=== PATIENT | male | born 1940 | race Caucasian/White ===

== ENCOUNTER 2018-05-06 10:18 | Observation (INO) | payer OTHER ==
--- NOTE | 2018-05-06 10:32 | CPEKG ---
Heart Rate: 52 RR Interval: 1154 P-R Interval: 268 QRSD Interval: 92 QT Interval: 496 QTC Interval: 462 P [place]: 68 QRS [place]: 56 T Wave [place]: 55 EKG Severity - ABNORMAL ECG - EKG Impression: SINUS RHYTHM EKG Impression: FIRST DEGREE AV BLOCK EKG Impression: CONSIDER LEFT VENTRICULAR HYPERTROPHY Electronically Signed By: Ivana Medina 06-May-2018 15:11:29
[2018-05-06] MEDS ORDERED: NS 500 ML IV ONE (10:40)
[2018-05-06] MEDS ORDERED: ATROPINE SULFATE 1 MG/10 ML SYR IVP ONE (10:42)
[2018-05-06] MEDS ORDERED: ATROPINE SULFATE 1 MG/10 ML SYR ONE (10:50)
--- NOTE | 2018-05-06 10:51 | EDPHY ---
H & P Time Seen by Provider: 05/06/18 10:31 HPI/ROS: HPI Lightheaded. 78-year-old male by private vehicle. This patient reports that he has had a history of spontaneous and intermittent episodes of lightheadedness ongoing for years. He reports however over the last several months these episodes have become more frequent in nature and over the last 1-2 days much more frequent. He reports about 30 episodes of near fainting yesterday and multiple episodes this morning. This is what prompted him to come to the emergency department. No associated chest pain. He denies vertigo. No shortness of breath. He is not on beta blockers or calcium channel blockers. No known coronary artery disease history. ROS: Constitutional: No fever, no chills. As above. Eyes: No discharge. No changes in vision. ENT: No sore throat. No nasal congestion or rhinorrhea. Respiratory: No cough. No shortness of breath. Cardiac: No chest pain, as above. Gastrointestinal: No abdominal pain, no vomiting, no diarrhea. Genitourinary: No hematuria. No dysuria or increased frequency with urination. Musculoskeletal: No back pain. No neck pain. No myalgias or arthralgias. Skin: No rashes. Neurological: No headache. No focal weakness or altered sensation. Past medical history: Benign prostatic hypertrophy. Social history: Nonsmoker. Here by himself. No alcohol. Physical Exam: General Appearance: Alert, no distress. Very pleasant. This patient is responding to questions appropriately and in full sentences. This patient appears well-hydrated and well-nourished. Eyes: Pupils equal and round no pallor or injection. No lid edema, erythema or injection. Respiratory: There are no retractions, lungs are clear to auscultation with good air movement bilaterally. Cardiovascular: Regular rate and rhythm. Bradycardia. No murmur appreciated. Gastrointestinal: Abdomen is soft and nontender, no masses, bowel sounds normal. No focal tenderness at McBurney's point. No Yap sign. Neurological: Motor sensory function is grossly intact. Cranial nerves are normal. Gait is normal. Skin: Warm and dry, no rashes. Musculoskeletal: Neck is supple and nontender. Extremities are symmetrical. All joints range without pain or impingement. Psychiatric: No agitation. No depression. Database: EKG: EKG time is 10:29 a.m.; EKG shows a narrow complex normal sinus bradycardia with a ventricular rate of 52. 1st degree AV block noted. The QRS, QT intervals are within normal limits. There are no ST-T wave changes indicative of ischemic or injury pattern. No evidence of right heart strain. Interpreted by me. Rhythm strip time 10:35 a.m. Shows what appears to be a Mobitz type 2 av block versus sick sinus syndrome with a sinus pause lasting approximately 10 sec. Then followed by a junctional rhythm followed by resuming of sinus beats. Later portions of the rhythm strip indicate intermittent sinus rhythm as well as AV dissociation. Interpreted by me. Imaging: Chest x-ray AP portable; the cardiac mediastinal silhouette is unremarkable. No evidence of infiltrate or pneumothorax. No acute cardiopulmonary disease process noted. Interpreted by me. Procedures: Emergency department course: Patient had a near syncopal episode associated with rhythm strip as noted above. Vital signs from triage were reviewed. The patient is moderately hypertensive. Bradycardia with a rate of 50 noted. Vital signs otherwise normal. Patient transferred from room 8 to room 2. Pacer pads were placed. He was started on IV normal saline with 500 cc to be given over the next hour. EKG obtained and reviewed by myself. He will be given 0.5 mg of IV atropine. Epinephrine drip to be ordered to the bedside. Cardiology paged at 10:40 a.m.. 10:55 a.m., patient given 0.5 mg of IV atropine. Repeat vital signs blood pressure 173/89. Heart rate is currently 83 with a narrow complex sinus rhythm on the monitor. Response to atropine indicates that block or problem is likely up above the AV node. More likely sick sinus syndrome. 11:00 a.m., spoke with on-call lathe set up operator Dr. Edita Pitts. She will see this patient in the emergency department shortly. Plan will be to admit the patient to the ICU under her care with the interventionalist to place a pacemaker this afternoon. This was discussed with the patient. He endorses. Currently shelter monitor shows a narrow complex sinus rhythm with ventricular rate of 64. Blood pressure 172/109. 11:15 a.m., Dr. Edita Pitts of the cardiology service is currently at the bedside. Patient's blood pressure is 150/91. case monitor shows a narrow complex sinus rhythm with ventricular rate of 77. The patient's remaining emergency department course under my care has been uneventful. The patient was admitted to the ICU under the care of Dr. Pitts in stable condition. Differential Diagnosis: The differential diagnosis on this patient includes but is not limited to 1st degree AV block, type 2 second-degree AV block, AV dissociation. This represents a partial list of diagnoses considered. These considerations are based on history, physical exam, past history, reassessment and diagnostic testing. Smoking Status: Never smoked Constitutional: Initial Vital Signs Temperature (C) 36.8 C 05/06/18 10:29 Heart Rate 50 L 05/06/18 10:29 Respiratory Rate 14 05/06/18 10:29 Blood Pressure 171/89 H 05/06/18 10:29 O2 Sat (%) 96 05/06/18 10:29 O2 Delivery Mode Room Air Allergies/Adverse Reactions: No Known Allergies Allergy (Verified 05/06/18 11:20) Home Medications: Medication Instructions Recorded Aspirin [Aspirin 325 mg (*)] 325 mg PO DAILY 05/06/18 Tanyz Eras 0.4mg 0.4 mg PO DAILY 05/06/18 Medical Decision Making - Diagnostics Imaging Results: Imaging Impressions Chest X-Ray 05/06/18 10:41 Impression: Possible mild cardiomegaly. Consider obtaining a routine upright PA and lateral chest, the patient is clinically able. Critical Care Time: I spent a total of 42 minutes of critical care time in obtaining history, performing a physical exam, bedside monitoring of interventions, collecting and interpreting tests and discussion with consultants but not including time spent performing procedures. - Data Points Laboratory Results: Laboratory Results 05/06/18 10:40 05/06/18 10:40 05/06/18 05/06/18 05/06/18 10:48 10:40 10:40 WBC RBC Hgb Hct MCV MCH MCHC RDW Plt Count MPV Neut % (Auto) Lymph % (Auto) [place] % (Auto) Eos % (Auto) Baso % (Auto) Nucleat RBC Rel Count Absolute Neuts (auto) Absolute Lymphs (auto) Absolute Monos (auto) Absolute Eos (auto) Absolute Basos (auto) Absolute Nucleated RBC Immature Gran % Immature Gran # PT 12.6 SEC SEC (12.0-15.0) INR 0.92 (0.83-1.16) APTT 26.2 SEC SEC (23.0-38.0) Sodium 140 mEq/L mEq/L (135-145) Potassium 4.5 mEq/L mEq/L (3.3-5.0) Chloride 109 mEq/L mEq/L (97-110) Carbon Dioxide 24 mEq/l mEq/l (22-31) Anion Gap 7 mEq/L L mEq/L (8-16) BUN 18 mg/dL mg/dL (7-23) Creatinine 1.1 mg/dL mg/dL (0.7-1.3) Estimated GFR > 60 Glucose 94 mg/dL mg/dL (70-100) Calcium 9.8 mg/dL mg/dL (8.5-10.4) POC Troponin I 0.01 ng/mL ng/mL (0.00-0.08) TSH Pending 05/06/18 10:40 WBC 4.80 10^3/uL 10^3/uL (3.80-9.50) RBC 4.48 10^6/uL 10^6/uL (4.40-6.38) Hgb 14.0 g/dL g/dL (13.7-17.5) Hct 41.5 % % (40.0-51.0) MCV 92.6 fL fL (81.5-99.8) MCH 31.3 pg pg (27.9-34.1) MCHC 33.7 g/dL g/dL (32.4-36.7) RDW 13.3 % % (11.5-15.2) Plt Count 145 10^3/uL L 10^3/uL (150-400) MPV 11.9 fL H fL (8.7-11.7) Neut % (Auto) 47.1 % % (39.3-74.2) Lymph % (Auto) 35.6 % % (15.0-45.0) [place] % (Auto) 14.0 % H % (4.5-13.0) Eos % (Auto) 3.1 % % (0.6-7.6) Baso % (Auto) 0.2 % L % (0.3-1.7) Nucleat RBC Rel Count 0.0 % % (0.0-0.2) Absolute Neuts (auto) 2.26 10^3/uL 10^3/uL (1.70-6.50) Absolute Lymphs (auto) 1.71 10^3/uL 10^3/uL (1.00-3.00) Absolute Monos (auto) 0.67 10^3/uL 10^3/uL (0.30-0.80) Absolute Eos (auto) 0.15 10^3/uL 10^3/uL (0.03-0.40) Absolute Basos (auto) 0.01 10^3/uL L 10^3/uL (0.02-0.10) Absolute Nucleated RBC 0.00 10^3/uL 10^3/uL (0-0.01) Immature Gran % 0.0 % % (0.0-1.1) Immature Gran # 0.00 10^3/uL 10^3/uL (0.00-0.10) PT INR APTT Sodium Potassium Chloride Carbon Dioxide Anion Gap BUN Creatinine Estimated GFR Glucose Calcium POC Troponin I TSH Medications Given: Discontinued Medications Atropine Sulfate (Atropine 1 Mg/10 Ml Syringe) 0.5 mg IVP EDNOW ONE Stop: 05/06/18 10:43 Last Admin: 05/06/18 10:47 Dose: 0.5 mg Sodium Chloride (Ns) 500 mls @ 1,000 mls/hr IV EDNOW ONE PRN Reason: Protocol Stop: 05/06/18 11:09 Last Admin: 05/06/18 10:46 Dose: 500 mls Point of Care Test Results: Chemistry 05/06/18 10:48 POC Troponin I 0.01 ng/mL ng/mL (0.00-0.08) Departure - Departure Disposition: [facility] Inpatient Acute Clinical Impression: Near syncope, Arrhythmia, Probable sick sinus syndrome
[2018-05-06 10:53] LABS: PLATELET COUNT 145 10^3/uL (150-400)
[2018-05-06 11:00] LABS: INR 0.92 (0.83-1.16); PROTIME(PATIENT) 12.6 SEC (12.0-15.0)
[2018-05-06] MEDS ORDERED: EPINEPHrine 1 MG in NS 250 ML IV SCH (11:00)
[2018-05-06] MEDS ORDERED: BACITRACIN IRRIGATION/NS 50,000 UNITS/1,000 ML BTL IRR ONE (11:51)
[2018-05-06] MEDS ORDERED: NS 1,000 ML IV ONE (11:51)
[2018-05-06] MEDS ORDERED: ONDANSETRON DISINTEGRATING 4 MG TAB PO PRN (11:52)
[2018-05-06] MEDS ORDERED: ACETAMINOPHEN 325 MG TAB PO PRN (11:52)
[2018-05-06] MEDS ORDERED: ONDANSETRON 4 MG/2 ML VIAL IVP PRN (11:52)
[2018-05-06] MEDS ORDERED: ceFAZolin 2 GM in NS 100 ML IV ONE (12:11)
[2018-05-06] MEDS ORDERED: ceFAZolin 2 GM/DEXTROSE 100 ML IV ONE (12:30)
--- NOTE | 2018-05-06 12:49 | GHP ---
[f rep st] HISTORY AND PHYSICAL DATE OF ADMISSION: 05/06/2018 CHIEF COMPLAINT: Presyncope. HISTORY OF PRESENT ILLNESS: We were asked by Dr. Medina, to visit with this patient. The patie nt is a very pleasant 78-year-old male with a history of untreated dyslipidemia and BPH. He has no h istory of coronary disease or arrhythmia to his knowledge. Over the past several months, he has had periodic dizziness and lightheadedness with 2 falls but no a ctual loss of consciousness. Things have been getting worse and more frequent. Yesterday, he descri bes 30 episodes of presyncope. He went to the [employer] station and had a 12-lead EKG, which I reviewed. This showed sinus rhythm with a first-degree AV block. He was told to see Cardiology. He presented to [facility] as a walk-in today and was told to report to the emergency department. In the emergency department, he was found to have sinus bradycardia with periods of sinus arrest and pauses up to 6 seconds with junctional escape rhythm. He was given 0.5 mg of atropine with return o f normal sinus rhythm and elevation in his blood pressure. He reports that yesterday when he was having all of the episodes of presyncope, he did have some ches t pressure. He has noted exertional dyspnea at higher levels of activity such as riding his bike eren zeyad or cross-country skiing. As mentioned, no nunu loss of consciousness. He does report bilateral mild lower extremity edema without PND or orthopnea. He is very active. 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 REVIEW OF SYSTEMS: A full 10-point review of systems is performed, is otherwise negative except that which is outlined in the History of Present Illness. ALLERGIES: No known drug allergies. PAST MEDICAL HISTORY: 1. Dyslipidemia. He reports that he has been intolerant of statins, but did start a statin at the s enriqueta time as he started another BPH medication, so unclear as to the side effects. 2. BPH. 3. 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 4. Tendon surgery. 5. Bilateral forearm fractures. OUTPATIENT MEDICATIONS: Tamsulosin 0.4 mg daily and aspirin 325 mg. He reports no other supplements or zfws-yof-wcpafis medications. SOCIAL HISTORY: The patient lives alone. He does not smoke cigarettes. He drinks alcohol in modera tion. FAMILY HISTORY: Brother had a DVT. There is no clear history of arrhythmia or premature coronary di sease. PHYSICAL EXAM: VITAL SIGNS: Blood pressure is 173/89, heart rate currently 73, oxygen saturation 97 % on room air. His respiratory rate is 16. GENERAL: Well-appearing older male in no distress HEENT : Sclerae are clear and free of jaundice. Mucous membranes are moist. Normocephalic, atraumatic. CARDIOVASCULAR: JVP is less than 10. Carotids equal to 2+ without bruit. Regular rate and rhythm w ith a 2/6 early to mid systolic murmur at the apex. No S3 or S4. LUNGS: Clear bilaterally without wheezes, rhonchi, or rales. ABDOMEN: Soft, nontender, nondistended, without bruits, masses, or hepa tosplenomegaly. EXTREMITIES: Warm and well-perfused without cyanosis, clubbing, or edema. NEURO: Alert and oriented x3 without gross focal neurologic deficits. LABORATORY DATA: CBC is essentially normal except for platelets of 145. INR is 0.92. Sodium 140, p otassium 4.5, chloride 109, bicarb 24, BUN 18, creatinine 1.1. Troponin is 0.01. TSH is pending. I reviewed his 12-lead EKG, which shows sinus bradycardia with 1st -degree AV block. I reviewed linda joseph rhythm strips from the ER, which show sinus rhythm with periods of sinus arrest and junctional es cape rhythm. Pauses up to 6 seconds. His chest x-ray reviewed by me shows no acute cardiopulmonary process. ASSESSMENT AND PLAN: A 78-year-old male with sick sinus syndrome and sinus arrest. This warrants pa cemaker implantation as he is not on any medications that can clearly cause this problem. Risks, javan efits, and alternatives were discussed and he is willing to proceed. 1. Sick sinus syndrome: Pacemaker later today with Dr. Lilly. He has transcutaneous pads on. He lucinda l be observed in the ICU. He does respond to atropine as needed. We will check TSH as well. 2. Murmur: Likely mitral regurgitation. Obtain echocardiogram. 3. Dyspnea on exertion: At some point he may require further risk stratification with stress testin g. It is also possible that perhaps he has chronotropic incompetence contributing to exertional dysp cedrick. Troponin is negative. It certainly does not seem that his bradyarrhythmia represents a sequela e of cardiac ischemia. 4. Dyslipidemia: Check lipids. Thank you for allowing us to participate in this patient's care. Anticipate at least 1 midnight give n the need for pacemaker implantation. /[id number]/MODL
--- NOTE | 2018-05-06 12:51 | PDGENHP ---
History & Physical Chief Complaint: presyncope Relevant Physical Exam: s1s2 rrr cta ao3 Cardiorespiratory Assessment: sinus pauses, for pacemaker implant. scott bhat
--- NOTE | 2018-05-06 12:52 | PDPROPOC ---
Sedation Plan of Care Sedation Plan of Care: vital signs stable, mental status noted, patient educated of risks, benefits, alternatives, patient can tolerate sedation ASA Classification: ASA 2 Planned drugs: fentanyl, midazolam Mallampati Score: Class 1 Mallampati Reference Image: Patient passed 3-3-2 rule?: Yes
[2018-05-06] MEDS ORDERED: IOPAMIDOL (ISOVUE-300) 50 ML VIAL ONE (14:50)
[2018-05-06] MEDS ORDERED: LIDOCAINE 1% 300 MG/30 ML SDV ONE (14:50)
[2018-05-06] MEDS ORDERED: LIDO/EPI 1% **for epidural** 30 ML SDV ONE (14:51)
[2018-05-06] MEDS ORDERED: fentaNYL 100 MCG/2 ML INJ ONE (14:51)
[2018-05-06] MEDS ORDERED: MIDAZOLAM 2 MG/2 ML VIAL ONE (14:51)
[2018-05-06] MEDS ORDERED: BUPIVACAINE 0.5% 30 ML SDV ONE (14:51)
--- NOTE | 2018-05-06 15:32 | ECHO ---
[email or web address] [address] [address] Main: [phone] Fax: Transthoracic Echocardiogram Name: ASHLEY PRINCE MR#: [id number] Study Date: 05/06/2018 Study Time: 01:43 PM Date of : 1940 Age: 78 year(s) Height: 165.1 cm (65 in.) Weight: 72.58 kg (160 lb.) BSA: 1.8 m2 Gender: Male Examination: Echo Indication: Sick Sinus Syndrome Image Quality: Contrast: Requested by: Edita Pitts BP: 170 mmHg/146 mmHg Heart Rate: Rhythm: Sinus bradycardia Indication: Sick Sinus Syndrome Procedure Staff Financial Agent: Camden Johnston RDCS Reading Physician: Rohan Amos MD Requesting Provider: Conclusions: Normal global systolic LV function. EF is 59 %. Trivial mitral valve regurgitation. Cannot rule out bicuspid aortic valve. The Ao mean PG is 12 mmHg with a AV max PG of 20 mmHg, There is turbulent flow noted thru the aortic valve.. Measurements: Chambers Valvular Assessment AV/MV Valvular Assessment TV/PV Normal Normal Normal Name Value Range Name Value Range Name Value Range Ao Deana (MM): 3.6 cm (2.2 cm-3.7 AV Vmax: 2.26 m/s (1 m/s-1.7 TR Vmax: 2.33 mm/s ( - ) cm) m/s) TR PGmax: 22 mmHg ( - ) IVSd (2D): 0.8 cm (0.6 cm-1.1 AV maxP mmHg ( - ) syst. PAP: 27 mmHg ( - ) cm) AV meanP mmHg ( - ) PV Vmax: 0.96 m/s (0.6 m/s-0.9 LVDd (2D): 5.0 cm (4.2 cm-5.9 LVOT Vmax: 0.71 m/s (0.7 m/s-1.1 m/s) cm) m/s) PV PGmax: 4 mmHg ( - ) LVDs (2D): 3.3 cm (2.1 cm-4 JENNA (Vmax): 1.0 cm2 ( - ) cm) JENNA (VTI): 1.0 cm ( - ) LVPWd (2D): 1.0 cm (0.6 cm-1 MV E Vmax: 0.54 m/s ( - ) cm) MV A Vmax: 0.74 m/s ( - ) LVOTd 2.0 cm 2.0 cm mm MV E/A: 0.73 ( - ) LVEF (MM): 59 (>=55 %) Continued Measurements: Chambers Valvular Assessment AV/MV Valvular Assessment TV/PV Name Value Name Value Name Value LADs Lon.5 cm MV E' Septal: 0.04 m/s CVP (est.): 5 mmHg LA Area: 20.3 cm2 MV E/E' Septal: 14.30 Patient: ASHLEY PRINCE Study Date: 05/06/2018 Page 1 of 2 01:43 PM LA Volume: 79 ml MV E/E' Lateral: 11.40 LA Volume Index: 43.9 ml/m2 AR Vmax: 2.12 cm/s Findings: Left Ventricle: Normal size left ventricle. No LV hypertrophy. Normal global systolic LV function. EF is 59 %. No regional wall motion abnormality. Diastolic dysfunction is present. . Right Ventricle: Normal size right ventricle. Normal RV function. Left Atrium: The left atrium is mildly to moderately dilated. Right Atrium: The right atrium is normal in size. Mitral Valve: The mitral valve is normal in appearance. Trivial mitral valve regurgitation. Aortic Valve: Cannot rule out bicuspid aortic valve. The Ao mean PG is 12 mmHg with a AV max PG of 20 mmHg, There is turbulent flow noted thru the aortic valve.. Tricuspid Valve: The tricuspid valve is normal in appearance and function. Trivial tricuspid valve regurgitation. The pulmonary artery pressure is normal. Pulmonic Valve: The pulmonic valve is normal in appearance and function. Mild pulmonic valve regurgitation is noted. Aorta: The aorta is normal. Pericardium: No pericardial effusion. (No Signature Object) Patient: ASHLEY PRINCE Study Date: 05/06/2018 Page 2 of 2 01:43 PM [id number]
--- NOTE | 2018-05-06 16:52 | EPPROC ---
Electrophysiology Procedure Note: PROCEDURE PERFORMED: 1. Implantation of an A/V Pacemaker 2. Subclavian vein angiography 3. Fluoroscopy INDICATION: Presyncope Sinus pauses and junctional rhythm correlate with episodes of presyncope PROCEDURE NOTE: Patient presented to the cardiac catheterization laboratory in a fasting, post absorptive state . EP RN administered sedation. The left infraclavicular area was prepped and draped in the usual sterile fashion. Lidocaine plus bupivacaine was used for local anesthesia. Left subclavian venography was performed by injection of iodinated contrast into the left antecubital vein. This was done to assure patency of the vein and also to assess for any anatomical aberrations. Using a combination of blunt and sharp dissection and electrocautery, the dissection was carried down to the prepectoral fascia. A pocket was made in this anatomical plane. All bleeding was controlled with electrocautery. The pocket was packed with gauze soaked in antibiotic solution. Fluoroscopy was utilized during the entire procedure for venous access and placement of the leads. Using a direct stick technique the left extrathoracic axillary vein was accessed with 2 sticks using the modified Seldinger technique. Placement of the guidewires into the venous system was confirmed by low-pressure blood return and also by visualizing the guidewires advancing into the inferior vena cava. A purse string suture was applied around the guidewires. Two #7 Urdu sheaths were advanced under fluoroscopic guidance over the guidewire. An active fixation ventricular lead was advanced into the right ventricular apex and screwed in place. An active fixation atrial lead was advanced into the right atrial appendage and screwed in place. The peel away sheaths were removed. Pacing thresholds, sensing parameters and lead impedances were measured. There was no diaphragmatic stimulation at maximum output. The leads were sutured to the prepectoral fascia with 3 nonabsorbable sutures each. The pocket was again inspected for any bleeding. The leads were attached to the pacemaker securely. The pacemaker was inserted into the pocket and secured in place with a nonabsorbable suture. Fluoroscopy was performed in OSORIO and FRANKLIN planes to verify right-sided placement of the leads. Also fluoroscopy of the pacemaker pocket was performed. The pacemaker pocket was closed in 3 layers with absorbable monocryl sutures and ayse. Appropriate dressing was applied. The patient left the cardiac catheterization laboratory in stable condition. Serial Numbers: 1. Device: [employer] serial [id number] 2. Atrial Lead: [facility] 2087 46 cm serial number [id number] 3. Ventricular Lead: [facility] 2087 52 cm serial number [id number] Stimulation Thresholds & Impedance Measurements: 1. Atrial Lead P-wave 4.3 mV , 487 Ohms, 1 volt at 0.5 milliseconds 2. Ventricular Lead R-wave 12.8 mV, 512 Ohms, 0.3 volts at 0.5 milliseconds Bang Pacing Parameters 1. Pacing mode: DDDR 2. Lower rate: 60ppm 3. Upper tracking rate: 130 ppm 4. Upper sensor rate: 130 ppm Patient Problems: Problems Problem Status Onset Bradycardia Acute Near syncope Acute Arrhythmia Acute
--- NOTE | 2018-05-06 17:05 | CPEKG ---
Heart Rate: 66 RR Interval: 909 P-R Interval: 380 QRSD Interval: 92 QT Interval: 468 QTC Interval: 491 P Addis: 0 QRS Addis: 8 T Wave Addis: -16 EKG Severity - ABNORMAL ECG - EKG Impression: ATRIAL-VENTRICULAR DUAL-PACED COMPLEXES EKG Impression: FIRST DEGREE AV BLOCK EKG Impression: LEFT VENTRICULAR HYPERTROPHY EKG Impression: NONSPECIFIC T ABNORMALITIES, INFERIOR LEADS EKG Impression: BORDERLINE PROLONGED QT INTERVAL Electronically Signed By: Moni Castillo 07-May-2018 06:59:37
[2018-05-07 04:46] LABS: PLATELET COUNT 149 10^3/uL (150-400)
[2018-05-07 07:32] VITALS: BP 116/75
--- NOTE | 2018-05-07 09:08 | CPEKG ---
Heart Rate: 66 RR Interval: 909 P-R Interval: 244 QRSD Interval: 82 QT Interval: 464 QTC Interval: 487 QRS [place]: 48 T Wave [place]: 37 EKG Severity - ABNORMAL ECG - EKG Impression: ATRIAL-PACED RHYTHM EKG Impression: LVH WITH SECONDARY REPOLARIZATION ABNORMALITY EKG Impression: BORDERLINE PROLONGED QT INTERVAL Electronically Signed By: Moni Castillo 07-May-2018 11:55:55
--- NOTE | 2018-05-07 10:14 | ASMTCMCOM ---
CM Note CM Note Notes: Chart reviewed. 78 year old male admitted via ED with syncopal episodes. PPM placed. No needs anticipated at this time. CM available should needs arise. Plan: Home without services when medically cleared for discharge. Date Signed: 05/07/2018 10:13 AM Electronically Signed By:Amber Cullen RN
[2018-05-07] MEDS ORDERED: ASPIRIN 325 MG TAB PO SCH (11:00)
[2018-05-07] MEDS ORDERED: TAMSULOSIN HCL 0.4 MG CAP PO SCH (11:15)
[2018-05-07] MEDS ORDERED: ATORVASTATIN CALCIUM 20 MG TAB PO SCH (11:15)
--- NOTE | 2018-05-07 13:51 | GDS ---
[f rep st] DISCHARGE SUMMARY ADMISSION DIAGNOSES: 1. Presyncope related to sick sinus syndrome and sinus arrest. 2. Dyslipidemia. 3. BPH. DISCHARGE DIAGNOSES: 1. Sick sinus syndrome status post dual-chamber [employer] pacemaker. 2. Dyslipidemia. 3. BPH. 4. Possible bicuspid aortic valve. PROCEDURES DURING ADMISSION: 1. Insertion of dual chamber pacemaker by Dr. Flex Lilly. This is a [employer] dev ice with [employer] atrial and ventricular leads. 2. Serial EKGs: The first showing sinus bradycardia. Rhythm strips with several pauses up to 6 sec onds and junctional escape with sinus arrest. Discharge EKG shows atrial pacing and ventricular sens ing. No ischemia. 3. Chest x-ray x3: Normal chest x-ray upon admission. Immediate post pacer implant and next day po st pacer implant chest x-rays show stable pacemaker generator and lead position without pneumothorax. 4. Echocardiogram: Normal LV size and systolic function. Aortic valve was not well visualized and is possibly bicuspid. There is no significant stenosis. Trivial mitral regurgitation. HOSPITAL COURSE: The patient is a pleasant 78-year-old male whose only past medical history is untre ated dyslipidemia and BPH. He presented to the ER with several episodes of presyncope. In the ER, marcus jay was found to have intermittent junctional escape rhythm and sinus arrest with pauses up to 6 second s. Therefore, he had a class 1 indication for permanent pacemaker implantation. This was performed the same day of admission by Dr. Lilly and was without complication. The day of discharge, he was feeling better without presyncope. He had no other cardiovascular sympt oms. No significant discomfort around the site of his pacemaker insertion. Device check showed normal thresholds and lead impedances with mostly atrial pacing. Chest x-ray showed stable device placement as detailed above. DISCHARGE PHYSICAL EXAM: VITAL SIGNS: Blood pressure 116/75, heart rate 63, oxygen saturation 95% o n room air. He is afebrile. GENERAL: Well-appearing older male in no acute distress. CARDIOVASCUL AR: Regular rate and rhythm with a 2/6 holosystolic murmur best heard at the apex. No gallop or rub . LUNGS: Clear to auscultation bilaterally, without wheeze, rhonchi or rales. No lower extremity e fabien. Left pectoral pacemaker pocket dressing is clean, dry and intact, with minimal tenderness to p alpation and no significant ecchymoses or hematoma. No fluctuance. DISCHARGE MEDICATIONS: Please see formal med reconciliation: I did attempt to start the patient on statin therapy, which he declines at this time. He will continue his usual aspirin and tamsulosin. DISCHARGE INSTRUCTIONS: 1. Pacemaker precautions. 2. Follow up for pacemaker check and suture removal on 05/14/2018, at 10:30 a.m. at our [place] [facility], and follow up with Dr. Pitts on 06/06/2018, at 10:45 a.m., at which time we will re-discuss stati n therapy. The patient was discharged home in stable condition. /[id number]/MODL
== END 2018-05-07 14:29 | disposition home or self-care (01) ==
LOC: INTOOBSV 11:05 → F2N 11:55 → F2W 16:57
PROVIDERS: ADMIT Internal Medicine Cardiovascular Disease; ATTEND Internal Medicine Cardiovascular Disease
PROC: 02HK3JZ Insertion of Pacemaker Lead into Right Ventricle, Percutaneous Approach (ICD-10-PCS; principal; 2018-05-06)
PROC: 0JH606Z Insertion of Pacemaker, Dual Chamber into Chest Subcutaneous Tissue and Fascia, Open Approach (ICD-10-PCS; principal; 2018-05-06)
PROC: 02H63JZ Insertion of Pacemaker Lead into Right Atrium, Percutaneous Approach (ICD-10-PCS; principal; 2018-05-06)
DX: I49.5 Sick sinus syndrome (principal); E78.5 Hyperlipidemia, unspecified; N40.0 Benign prostatic hyperplasia without lower urinary tract symptoms; E86.9 Volume depletion, unspecified
CPT/HCPCS: 33208; 71045; 71046; 93005; 93306; 96361; 96374; 99291; C1785; C1898; G0378; J0461; J0690; J2250; J3010; Q9967; 84484-PO